=== PATIENT | female | born 1990 | race African-American/Black ===

== ENCOUNTER 2019-01-20 11:22 | Emergency (ER) | payer MEDICAID, OTHER ==
[~2019-01-20] VITALS: Ht 157.5 cm; Wt 63.0 kg
[2019-01-20 11:45] VITALS: BP 123/72
== END 2019-01-20 18:02 | disposition left against medical advice (07) ==
LOC: ER 11:28
DX: R10.9 Unspecified abdominal pain (principal); Z53.21 Procedure and treatment not carried out due to patient leaving prior to being seen by health care provider